=== PATIENT | female | born 1955 | race Caucasian/White ===

== ENCOUNTER 2018-05-30 10:34 | Emergency (ER) | payer OTHER ==
[2018-05-30 10:41] VITALS: BP 131/75
--- NOTE | 2018-05-30 10:54 | EDPHY ---
General Time Seen by Provider: 05/30/18 10:43 Narrative: CHIEF COMPLAINT: Back and neck pain HISTORY OF PRESENT ILLNESS: Patient presents by private vehicle with complaints of right-sided back and neck pain. Pain started 1 year ago. Location is the right side of the neck and upper back, extending up to the occiput. Symptoms have common gone. They frequently present. Over the past few days they have worsened. No trauma or injury. Symptoms very from [id number]. Associated with headache at time that radiates to the forehead. She has no midline neck or back pain no trauma injury. No numbness or tingling. No nausea or vomiting. No fever chills. No neck stiffness. She has been seen many times for this and diagnosed with spasms at time. No recent examination. No other associated complaints or modifying factors. REVIEW OF SYSTEMS: 10 systems were reviewed and negative with the exception of the elements mentioned in the history of present illness. PCP: Dr. Vieyra SPECIALISTS: None currently. Previously followed by an acute PAST MEDICAL HISTORY: Hypothyroid, grave disease, spinal fracture remotely PAST SURGICAL HISTORY: No recent surgical history SOCIAL HISTORY: Nonsmoker. Lives independently. FAMILY HISTORY: Noncontributory EXAMINATION: Vitals: Triage VS reviewed General Appearance: Alert, no distress. Well-appearing ambulatory. Head: normocephalic, atraumatic. Mild tenderness at the insertion of the right trapezius muscle at the occiput. Eyes: Pupils equal and round, no conjunctival pallor or injection ENT, Mouth: Mucous membranes moist Neck: Midline trachea. Normal inspection, supple, no midline tenderness. No crepitus or deformity. Right-sided trapezius tenderness. No meningismus. Respiratory: Lungs are clear to auscultation Cardiovascular: Regular rate and rhythm Gastrointestinal: Abdomen is soft and nontender Back: No bony tenderness. There is right paraspinal tenderness from the mid thoracic spine up. No crepitus or deformity. Neurological: Cranial nerves 2 through 12 grossly intact. A&O, nonfocal, normal gait Skin: Warm and dry, no rash Extremities: Nontender, no pedal edema Psychiatric: Mood and affect normal DIFFERENTIAL DIAGNOSES: Including but not limited to muscle spasm, muscular strain, tension headache MDM: 10:45 a.m. right-sided neck and back pain involves only the trapezius and erector spinae muscles. This is a reproducible pain consistent with spasm versus tension-type headache. She has no meningismus. She has no headache at this time. She has no bony tenderness of the back, trauma or injury. She has a normal neuro examination with excellent strength of lower extremities and no signs of acute cord compression or cauda equina. No risk factors for epidural abscess or epidural hematoma. This has been ongoing for nearly a year. We will try symptomatic medications and refer back to her primary care physician for further care. ED precautions discussed at length. She voiced her understanding of these. She is well-appearing, ambulatory discharged home stable condition. SUPERVISION: This patient was independently evaluated without direct involvement of or examination by the attending physician. CONSULTATION: None - History Smoking Status: Current every day smoker - Objective Vital Signs: Initial Vital Signs Temperature (C) 97.7 F 05/30/18 10:38 Heart Rate 74 05/30/18 10:38 Respiratory Rate 16 05/30/18 10:38 Blood Pressure 131/75 H 05/30/18 10:38 O2 Sat (%) 98 05/30/18 10:38 O2 Delivery Mode Room Air Allergies/Adverse Reactions: No Known Allergies Allergy (Verified 12/15/15 12:17) Home Medications: Medication Instructions Recorded Cyclobenzaprine [Cyclobenzaprine 5 mg PO TID PRN #12 tab 05/30/18 HCl] Levothyroxine 05/30/18 Departure - Departure Disposition: Home, Routine, Self-Care Clinical Impression: Muscle spasm, Tension headache Condition: Good Instructions: Tension Headache (ED), Muscle Spasm (ED) Additional Instructions: 1. Continue your [id number] naproxen as needed every 8-12 hours. 2. Add Flexeril muscle relaxant as prescribed as needed. 3. Warm compresses, massage and/or acupuncture as needed if this improved her symptoms 4. ED precautions for sudden onset headache, neck pain or stiffness, fever, numbness, tingling or weakness. 5. Follow up primary care physician 6. score caller Acupuncture: [phone] (Samuel) Referrals: Naveen Vieyra MD [Primary Care Provider] - As per Instructions Prescriptions: Cyclobenzaprine [Cyclobenzaprine HCl] 5 mg PO TID PRN #12 tab PRN Reason: muscle spasm
== END 2018-05-30 11:09 | disposition home or self-care (01) ==
DX: M54.2 Cervicalgia (principal); F17.200 Nicotine dependence, unspecified, uncomplicated